=== PATIENT | male | born 1960 | race Caucasian/White ===

== ENCOUNTER 2021-01-23 16:39 | Emergency (ER) | payer MEDICARE, OTHER ==
[~2021-01-23] VITALS: Ht 167.6 cm; Wt 93.4 kg
[~2021-01-23 16:39] MED LIST: ASPI325EC; CEPH500 PO; ESCI20; METO25ER; NAPR500; OXYACE7.5T PO; RXOXYACE PO; SIMV20
[2021-01-23 17:19] LABS: BASOPHILS ABSOLUTE AUTO 0.04 K/mm3 (0.00-0.23); BASOPHILS PERCENT AUTO 0 % (0-2); EOSINOPHILS ABSOLUTE AUTO 0.16 K/mm3 (0.00-0.68); EOSINOPHILS PERCENT AUTO 2 % (0-6); Hematocrit 36.4 % (37.0-53.0); Hemoglobin 12.2 g/dL (13.5-17.5); IMMATURE GRAN ABSOLUTE AUTO 0.05 K/mm3 (0.00-0.10); IMMATURE GRAN PERCENT AUTO 1 % (0-1); LYMPHOCYTES ABSOLUTE AUTO 3.38 K/mm3 (0.84-5.20); LYMPHOCYTES PERCENT AUTO 35 % (21-46); MONOCYTES ABSOLUTE AUTO 0.73 K/mm3 (0.16-1.47); MONOCYTES PERCENT AUTO 8 % (4-13); Mean Corpuscular HGB 30.4 pg (26.0-34.0); Mean Corpuscular HGB Conc 33.5 g/dL (31.5-36.5); Mean Corpuscular Volume 91 fL (80-100); Mean Platelet Volume 10.4 fL (9.1-12.4); NEUTROPHILS ABSOLUTE AUTO 5.37 K/mm3 (1.96-9.15); NEUTROPHILS PERCENT AUTO 55 % (41-73); Platelet Count 277 K/mm3 (150-400); RDW Coefficient Variation 13.4 % (11.7-14.2); RDW Standard Deviation 44.8 fL (35.1-46.3); Red Blood Cell Count 4.01 M/mm3 (4.30-5.90); White Blood Cell Count 9.73 K/mm3 (4.00-11.30)
[2021-01-23 17:31] LABS: International Normalized Ratio 1.04; Prothrombin Time Results 11.2 Sec (9.7-11.5)
[2021-01-23 17:45] LABS: Albumin, Blood 4.1 g/dL (3.4-5.0); Albumin/Globulin Ratio 1.1 (0.8-1.8); Bilirubin, Total 0.3 mg/dL (0.1-1.0); Bun/Creatinine Ratio 8.4 (12.0-20.0); Creatinine, Blood 1.31 mg/dL (0.60-1.20); Globulin, Blood 3.9 g/dL (2.2-4.0); Potassium, Blood 3.4 mmol/L (3.5-5.5)
[2021-01-24] MEDS ORDERED: RISPERIDONE PO ×2 (08:33)
[2021-01-24] MEDS ORDERED: XARELTO15 M1 PO ×2 (08:34)
[2021-01-24] MEDS ORDERED: METOPROLOL TART25 MG PO ×2 (08:35)
[2021-01-24] MEDS ORDERED: CITALOPRAM HBR PO ×2 (08:35)
[2021-01-24] MEDS ORDERED: Benztropine Me0.5 MG PO ×2 (08:35)
[2021-01-24] MEDS ORDERED: LIPITOR80 MG PO ×2 (08:35)
[2021-01-24] MEDS ORDERED: METFORMIN HCL1000 M8 PO ×2 (08:36)
== END 2021-01-23 20:57 | disposition left against medical advice (07) ==
LOC: ER 16:39
PROVIDERS: Physician Assistant
DX: R22.41 Localized swelling, mass and lump, right lower limb (principal); I82.411 Acute embolism and thrombosis of right femoral vein; I82.811 Embolism and thrombosis of superficial veins of right lower extremity; Z53.21 Procedure and treatment not carried out due to patient leaving prior to being seen by health care provider
CPT/HCPCS: 36415; 80053; 85025; 85610; 85730; 93971; 99284

== ENCOUNTER 2021-01-24 06:12 | Observation (INO) | payer MEDICARE, OTHER ==
[~2021-01-24] VITALS: Ht 167.6 cm; Wt 93.5 kg
[2021-01-24] MEDS ORDERED: RISPERIDONE PO ×2 (08:33)
[2021-01-24] MEDS ORDERED: XARELTO15 M1 PO ×2 (08:34)
[2021-01-24] MEDS ORDERED: METOPROLOL TART25 MG PO ×2 (08:35)
[2021-01-24] MEDS ORDERED: LIPITOR80 MG PO ×2 (08:35)
[2021-01-24] MEDS ORDERED: Benztropine Me0.5 MG PO ×2 (08:35)
[2021-01-24] MEDS ORDERED: CITALOPRAM HBR PO ×2 (08:35)
[2021-01-24] MEDS ORDERED: METFORMIN HCL1000 M8 PO ×2 (08:36)
[2021-01-24 09:04] LABS: BASOPHILS ABSOLUTE AUTO 0.04 K/mm3 (0.00-0.23); BASOPHILS PERCENT AUTO 1 % (0-2); EOSINOPHILS ABSOLUTE AUTO 0.03 K/mm3 (0.00-0.68); EOSINOPHILS PERCENT AUTO 0 % (0-6); Hematocrit 37.8 % (37.0-53.0); Hemoglobin 12.6 g/dL (13.5-17.5); IMMATURE GRAN ABSOLUTE AUTO 0.04 K/mm3 (0.00-0.10); IMMATURE GRAN PERCENT AUTO 1 % (0-1); LYMPHOCYTES ABSOLUTE AUTO 2.02 K/mm3 (0.84-5.20); LYMPHOCYTES PERCENT AUTO 26 % (21-46); MONOCYTES ABSOLUTE AUTO 0.74 K/mm3 (0.16-1.47); MONOCYTES PERCENT AUTO 9 % (4-13); Mean Corpuscular HGB 30.6 pg (26.0-34.0); Mean Corpuscular HGB Conc 33.3 g/dL (31.5-36.5); Mean Corpuscular Volume 92 fL (80-100); NEUTROPHILS ABSOLUTE AUTO 4.98 K/mm3 (1.96-9.15); NEUTROPHILS PERCENT AUTO 64 % (41-73); Platelet Count 271 K/mm3 (150-400); RDW Coefficient Variation 13.4 % (11.7-14.2); RDW Standard Deviation 45.3 fL (35.1-46.3); Red Blood Cell Count 4.12 M/mm3 (4.30-5.90); White Blood Cell Count 7.85 K/mm3 (4.00-11.30)
[2021-01-24 09:19] LABS: International Normalized Ratio 0.97; Prothrombin Time Results 10.5 Sec (9.7-11.5)
[2021-01-24 09:29] LABS: Anion Gap 6 mmol/L (6-16); Blood Urea Nitrogen 11 mg/dL (8-24); Bun/Creatinine Ratio 9.2 (12.0-20.0); CO2, Blood 26 mmol/L (21-32); Calcium, Blood 9.6 mg/dL (8.5-10.1); Chloride, Blood 104 mmol/L (98-108); Glomerular Filtration Rate >60 (60-); Glucose, Blood 209 mg/dL (70-99); Potassium, Blood 3.7 mmol/L (3.5-5.5); Sodium, Blood 136 mmol/L (136-145)
[2021-01-24 10:04] LABS: SARS-Cov-2 (COVID-19) PCR, MMC NEGATIVE (NEGATIVE)
--- NOTE | 2021-01-24 12:19 | NUR ---
ARRIVED TO 230 ACCOMPANIED BY . RLE SWOLLEN, WARM. MOVEMENT AND SENSATION INTACT. PT REPORTS PAIN IS AT ACCEPTABLE LEVEL AT 4/10. DOPPLER PULSES PRESENT AND PULSE SITES MARKED ON PATIENTS SKIN.. PT IS AWARE OF UPCOMING PROCEDURE AND NPO STATUS
--- NOTE | 2021-01-24 17:10 | NUR ---
TO [facility] VIA BED. PHONE CALL MADE TO PATIENTS TO LET HER KNOW PATIENT WAS BEING TAKEN FOR PROCEDURE
--- NOTE | 2021-01-24 20:29 | NUR ---
IMAGING HAIR DRESSER ARRIVED TO FLOOR TO TRANSPORT PT TO IMAGING. PER HAIR DRESSER, ESTIMATED TIME WILL BE 20-30 MINUTES. SECOND IV ACCESS ESTABLISHED FOR CONTRAST SO HEPARIN DRIP MAY CONTINUE UNINTERRUPTED.
--- NOTE | 2021-01-25 05:05 | NUR ---
SHIFT SUMMARY POD1 THROMBOLECTOMY RLE, PER [facility] RN REPORT THEY WERE UNABLE TO REMOVE THE THROMBOSIS, PT WENT TO IMAGING FOR ORDERED CT, REPEAT LAB DRAWS HAVE HAD NO CHANGES TO HEPARIN DRIP RATE PER PHARMACY ORDER, SECOND IV STARTED IN R HAND TO KEEP HEPARIN ON IT OWN DEDICATED LINE FOR IMAGING CONTRAST. PT VOIDING WELL, STILL ON BEDREST PER ORDER, DENIES PAIN T/O SHIFT SO FAR. NO ACUTE EVENTS THIS SHIFT. CALL LIGHT IN REACH, WILL CTM AND REPORT TO DAY RN.
--- NOTE | 2021-01-25 07:41 | NUR ---
RECIEVED REPORT RECENTLY, PT ASSISTED WITH ADL'S PRN. DENIES OTHER NEEDS. REPORTS AWARE OF BEDREST/RESTRICTIONS.
--- NOTE | 2021-01-25 10:15 | NUR ---
PT BEEN RESTING QUIETLY TALKING WITH PT'S FAMILY.
--- NOTE | 2021-01-25 13:09 | NUR ---
DR SHRESTHA HERE RECENTLY TO SEE PT, FAMILY PRESENT. REPORTS WILL WRITE ORDERS FOR MEDICATIONS TO BE GIVEN BEFORE PT GOING HOME. DR CHANG WILL WRITE ORDERS FOR DISCHARGE.
--- NOTE | 2021-01-25 13:38 | NUR ---
REPORT GIVEN TO MAXWELL Almaguer RN WHO IS ASSUMING CARE OF PT AT THIS TIME.
--- NOTE | 2021-01-25 14:30 | NUR ---
DISCHARGE SUMMARY PT A/O X4; PLEASANT AND COOPERATIVE WITH CARE. PT TAKEN OFF HEPARIN DRIP AT DISCHARGE AND GIVEN XARELTO ORDERED. NEW PRESCRIPTIONS CALLED INTO THE PHARMACY. PROVIDED PT EDUCATION ON BLEEDING PRECAUTIONS WHICH HE VERBALIZED KNOWLEDGE OF. PT TO FOLLOW UP WITH CARDIOLOGY. IV DC'D WNL. PT DC'D HOME WITH .
== END 2021-01-25 18:00 | disposition home or self-care (01) ==
LOC: ER 06:12 → ERHOLD 06:13 → SURS 11:42
PROVIDERS: Emergency Medicine; ADMIT Radiology Diagnostic Radiology
DX: I82.421 Acute embolism and thrombosis of right iliac vein (principal); I82.521 Chronic embolism and thrombosis of right iliac vein; Z20.822 Contact with and (suspected) exposure to COVID-19
CPT/HCPCS: 36005; 36415; 74177; 75820; 76937; 80048; 85025; 85610; 85730; 96374; 99152; 99153; 99285-25; A9270; C1769; C1887; C1894; G0378; J1644; J2250; J3010; J7030; J7050; Q9967; U0004

== ENCOUNTER → 2023-01-26 | Outpatient (CLI) | payer MEDICARE, OTHER ==
[~2023-01-26] MED LIST changes: +Benztropine Me0.5 MG PO; +CITALOPRAM HBR PO; +LIPITOR80 MG PO; +METFORMIN HCL1000 M8 PO; +METOPROLOL TART25 MG PO; +RISPERIDONE PO; +XARELTO15 M1 PO
[2023-01-26 14:03] LABS: Microalb/Creat Ratio UR, Rand Unable to Calculate mg/g (0.000-30.000); Microalbumin, Random Urine <5.000 mg/L (0.000-20.000)
== END | disposition home or self-care (01) ==
LOC: LAB SHORT 09:04 → LAB 09:04
PROVIDERS: Family Medicine
DX: E11.51 Type 2 diabetes mellitus with diabetic peripheral angiopathy without gangrene (principal); E11.628 Type 2 diabetes mellitus with other skin complications; E11.22 Type 2 diabetes mellitus with diabetic chronic kidney disease; E11.65 Type 2 diabetes mellitus with hyperglycemia
CPT/HCPCS: 82043; 82570

== ENCOUNTER → 2024-02-18 | Outpatient (CLI) | payer MEDICARE, OTHER ==
[2024-02-18 11:29] LABS: BASOPHILS ABSOLUTE AUTO 0.05 K/mm3 (0.00-0.23); BASOPHILS PERCENT AUTO 1 % (0-2); EOSINOPHILS PERCENT AUTO 1 % (0-6); Hematocrit 40.3 % (37.0-53.0); Hemoglobin 13.3 g/dL (13.5-17.5); IMMATURE GRAN ABSOLUTE AUTO 0.03 K/mm3 (0.00-0.10); IMMATURE GRAN PERCENT AUTO 0 % (0-1); LYMPHOCYTES ABSOLUTE AUTO 3.21 K/mm3 (0.84-5.20); LYMPHOCYTES PERCENT AUTO 41 % (21-46); MONOCYTES ABSOLUTE AUTO 0.58 K/mm3 (0.16-1.47); MONOCYTES PERCENT AUTO 7 % (4-13); Mean Corpuscular HGB 27.8 pg (26.0-34.0); Mean Corpuscular Volume 84 fL (80-100); Mean Platelet Volume 10.5 fL (9.1-12.4); NEUTROPHILS ABSOLUTE AUTO 3.85 K/mm3 (1.96-9.15); NEUTROPHILS PERCENT AUTO 49 % (41-73); Platelet Count 263 K/mm3 (150-400); RDW Coefficient Variation 13.9 % (11.7-14.2); Red Blood Cell Count 4.79 M/mm3 (4.30-5.90); White Blood Cell Count 7.82 K/mm3 (4.00-11.30)
[2024-02-18 11:46] LABS: Alanine Aminotransfer (ALT/SGP 30 U/L (12-78); Albumin/Globulin Ratio 1.2 (0.8-1.8); Alk Phos 54 U/L (50-136); Anion Gap 12 mmol/L (3-11); Aspartate Aminotrans (AST/SGOT 19 U/L (12-37); Bilirubin, Total 0.3 mg/dL (0.1-1.0); Blood Urea Nitrogen 15 mg/dL (8-24); Bun/Creatinine Ratio 11.8 (12.0-20.0); CHOL/HDL RATIO 5.5; CO2, Blood 22 mmol/L (21-32); Calcium, Blood 9.6 mg/dL (8.5-10.1); Chloride, Blood 105 mmol/L (98-108); Cholesterol 182 mg/dL (50-200); Creatinine, Blood 1.27 mg/dL (0.60-1.20); Globulin, Blood 3.2 g/dL (2.2-4.0); Glomerular Filtration Rate 64 (60-); Glucose, Blood 198 mg/dL (70-99); HDL Cholesterol 33 mg/dL (>39); LDL/HDL RATIO Unable to Calculate; Low Density Lipoprotein Chol Unable to Calculate mg/dL (0-110); Potassium, Blood 4.3 mmol/L (3.5-5.5); Sodium, Blood 135 mmol/L (136-145); Total Protein, Blood 7.2 g/dL (6.4-8.2); Triglycerides 414 mg/dL (30-160); Very Low Density Lipoprot Chol Unable to Calculate mg/dL (6-32)
[2024-02-18 11:58] LABS: LDL Direct Measurement 97 mg/dL (0-130)
== END ==
LOC: LAB 10:35 → LAB SHORT 10:35
PROVIDERS: Family Medicine
DX: Z51.81 Encounter for therapeutic drug level monitoring (principal); Z79.899 Other long term (current) drug therapy
CPT/HCPCS: 80053; 80061; 83721; 84443; 85025

== ENCOUNTER → 2024-12-29 | Outpatient (CLI) | payer MEDICARE, OTHER ==
[2024-12-29 20:15] LABS: Creatinine, Urine Random 79.6 mg/dL (27.00-270.00); Microalb/Creat Ratio UR, Rand 11.206 mg/g (0.000-30.000); Microalbumin, Random Urine 8.92 mg/L (0.000-20.000)
== END ==
LOC: LAB 15:05 → LAB SHORT 15:05
PROVIDERS: Family Medicine
DX: E11.65 Type 2 diabetes mellitus with hyperglycemia (principal); E11.22 Type 2 diabetes mellitus with diabetic chronic kidney disease; E11.51 Type 2 diabetes mellitus with diabetic peripheral angiopathy without gangrene; E11.628 Type 2 diabetes mellitus with other skin complications
CPT/HCPCS: 82043; 82570

== ENCOUNTER → 2024-12-29 | Outpatient (CLI) | payer MEDICARE, OTHER ==
[2024-12-29 11:57] LABS: PSA, Free 0.212 ng/mL; Prostate Specific Antigen 0.520 ng/mL (0.000-4.000); Thyroid Stimulating Hormone 4.790 uIU/mL (0.360-4.800)
[2024-12-29 11:58] LABS: Alanine Aminotransfer (ALT/SGP 29 U/L (12-78); Albumin, Blood 4.1 g/dL (3.4-5.0); Albumin/Globulin Ratio 1.0 (0.8-1.8); Anion Gap 12 mmol/L (3-11); Aspartate Aminotrans (AST/SGOT 15 U/L (12-37); Bilirubin, Total 0.3 mg/dL (0.1-1.0); Blood Urea Nitrogen 18 mg/dL (8-24); CHOL/HDL RATIO 7.0; CO2, Blood 22 mmol/L (21-32); Calcium, Blood 9.4 mg/dL (8.5-10.1); Chloride, Blood 102 mmol/L (98-108); Cholesterol 197 mg/dL (50-200); Creatinine, Blood 1.18 mg/dL (0.60-1.20); Globulin, Blood 4.0 g/dL (2.2-4.0); Glucose, Blood 234 mg/dL (70-99); HDL Cholesterol 28 mg/dL (>39); LDL/HDL RATIO Unable to Calculate; Low Density Lipoprotein Chol Unable to Calculate mg/dL (0-110); PSA, %Free 40.8 %; Potassium, Blood 4.0 mmol/L (3.5-5.5); Sodium, Blood 132 mmol/L (136-145); Total Protein, Blood 8.1 g/dL (6.4-8.2); Triglycerides 711 mg/dL (30-160); Very Low Density Lipoprot Chol Unable to Calculate mg/dL (6-32)
[2024-12-29 12:02] LABS: BASOPHILS ABSOLUTE AUTO 0.05 K/mm3 (0.00-0.23); BASOPHILS PERCENT AUTO 1 % (0-2); EOSINOPHILS ABSOLUTE AUTO 0.09 K/mm3 (0.00-0.68); EOSINOPHILS PERCENT AUTO 1 % (0-6); Hematocrit 42.9 % (37.0-53.0); Hemoglobin 13.8 g/dL (13.5-17.5); IMMATURE GRAN ABSOLUTE AUTO 0.05 K/mm3 (0.00-0.10); IMMATURE GRAN PERCENT AUTO 1 % (0-1); LYMPHOCYTES ABSOLUTE AUTO 3.18 K/mm3 (0.84-5.20); LYMPHOCYTES PERCENT AUTO 33 % (21-46); MONOCYTES ABSOLUTE AUTO 0.71 K/mm3 (0.16-1.47); MONOCYTES PERCENT AUTO 7 % (4-13); Mean Corpuscular HGB Conc 32.2 g/dL (31.5-36.5); Mean Corpuscular Volume 79 fL (80-100); NEUTROPHILS ABSOLUTE AUTO 5.58 K/mm3 (1.96-9.15); NEUTROPHILS PERCENT AUTO 58 % (41-73); NRBC ABSOLUTE 0.00 K/mm3 (0.00-0.02); NRBC Auto 0.0 /100 WBC (0.0-0.2); Platelet Count 233 K/mm3 (150-400); RDW Coefficient Variation 16.3 % (11.7-14.2); RDW Standard Deviation 46.2 fL (35.1-46.3)
[2024-12-29 12:13] LABS: LDL Direct Measurement 84 mg/dL (0-130)
== END ==
LOC: LAB SHORT 11:00 → LAB 11:00
PROVIDERS: Family Medicine
DX: R33.9 Retention of urine, unspecified (principal); Z79.899 Other long term (current) drug therapy; E11.65 Type 2 diabetes mellitus with hyperglycemia; E11.22 Type 2 diabetes mellitus with diabetic chronic kidney disease; E11.51 Type 2 diabetes mellitus with diabetic peripheral angiopathy without gangrene; E11.628 Type 2 diabetes mellitus with other skin complications
CPT/HCPCS: 80053; 80061; 82043; 82306; 82570; 83721; 84153; 84154; 84443; 85025